=== PATIENT | female | born 1995 | race Two or more races ===

== ENCOUNTER 2017-05-16 08:49 | Inpatient (IN) | payer SELFPAY ==
[~2017-05-16] VITALS: Ht 152.4 cm; Wt 62.7 kg
--- NOTE | 2017-05-16 09:02 | PHYS DOC ---
Adult General Chief Complaint Chief Complaint: ABDOMINAL PAIN HPI HPI Patient is a 21 year old female presents to the ED complaining of abdominal pain x 2 days. States the pain is sharp. Rates it as an 8/10. Worsened since last night. Pain and tenderness to RLQ. Associated symptoms include nausea. States she had an elective a few months ago. Denies dizziness, weakness , vomiting, blood in stool, diarrhea, chest pain or shortness of breath. Review of Systems Review of Systems Constitutional: Denies fever or chills [] Eyes: Denies change in visual acuity, redness, or eye pain [] HENT: Denies nasal congestion or sore throat [] Respiratory: Denies cough or shortness of breath [] Cardiovascular: No additional information not addressed in HPI [] GI: Complains of abdominal pain. Denies nausea, vomiting, bloody stools or diarrhea [] : Denies dysuria or hematuria [] Musculoskeletal: Denies back pain or joint pain [] Integument: Denies rash or skin lesions [] Neurologic: Denies headache, focal weakness or sensory changes [] Endocrine: Denies polyuria or polydipsia [] All other systems were reviewed and found to be within normal limits, except as documented in this note. Current Medications Current Medications Current Medications Medications (Trade) Dose Ordered Sig/Nishant Start Time Stop Time Status Last Admin Dose Admin Info (Do NOT chart on this entry -- for MONITORING) 1 each PRN DAILY PRN 05/16/17 09:30 05/17/17 14:11 DC Iohexol (Omnipaque 300 Mg/ml) 75 ml 1X ONCE 05/16/17 09:30 05/16/17 09:31 DC 05/16/17 10:11 75 ML Ketorolac Tromethamine (Toradol) 15 mg 1X ONCE 05/16/17 09:15 05/16/17 09:16 DC 05/16/17 09:31 15 MG Potassium Chloride (Klor-Con) 40 meq 1X ONCE 05/16/17 10:00 05/16/17 10:01 DC 05/16/17 10:36 40 MEQ Allergies Allergies Allergies Coded Allergies Type Severity Reaction Last Updated Verified No Known Drug Allergies 05/16/17 No Physical Exam Physical Exam Constitutional: Well developed, well nourished, no acute distress, non-toxic appearance. [] HENT: Normocephalic, atraumatic, bilateral external ears normal, oropharynx moist, no oral exudates, nose normal. [] Eyes: PERRLA, EOMI, conjunctiva normal, no discharge. [] Neck: Normal range of motion, no tenderness, supple, no stridor. [] Cardiovascular:Heart rate regular rhythm, no murmur [] Lungs & Thorax: Bilateral breath sounds clear to auscultation [] Abdomen: Bowel sounds normal, soft, MILD RLQ TENDERNESS. no masses, no pulsatile masses. [] Skin: Warm, dry, no erythema, no rash. [] Back: No tenderness, no CVA tenderness. [] Extremities: No tenderness, no cyanosis, no clubbing, ROM intact, no edema. [] Neurologic: Alert and oriented X 3, normal motor function, normal sensory function, no focal deficits noted. [] Psychologic: Affect normal, judgement normal, mood normal. [] Current Patient Data Vital Signs Vital Signs Date Time Temp Pulse Resp B/P (MAP) Pulse Ox O2 Delivery O2 Flow Rate FiO2 05/16/17 11:49 81 16 99/64 (76) 97 Room Air 05/16/17 09:00 98.3 98.3 Lab Values Laboratory Tests Test 05/16/17 08:57 05/16/17 09:16 Urine Collection Type Unknown Urine Color Yellow Urine Clarity Cloudy Urine pH 6.0 Urine Specific [place] >=1.030 Urine Protein Negative mg/dL (NEG-TRACE) Urine Glucose (UA) Negative mg/dL (NEG) Urine Ketones (Stick) Negative mg/dL (NEG) Urine Blood Moderate (NEG) Urine Nitrite Negative (NEG) Urine Bilirubin Negative (NEG) Urine Urobilinogen Dipstick 0.2 mg/dL (0.2 mg/dL) Urine Leukocyte Esterase Negative (NEG) Urine RBC 6-10 /HPF (0-2) Urine WBC 0 /HPF (0-4) Urine Squamous Epithelial Cells Many /LPF Urine Bacteria Few /HPF (0-FEW) POC Urine HCG, Qualitative Hcg negative (Negative) White Blood Count 8.9 x10^3/uL (4.0-11.0) Red Blood Count 5.10 x10^6/uL (3.50-5.40) Hemoglobin 14.0 g/dL (12.0-15.5) Hematocrit 42.4 % (36.0-47.0) Mean Corpuscular Volume 83 fL (79-100) Mean Corpuscular Hemoglobin 27 pg (25-35) Mean Corpuscular Hemoglobin Concent 33 g/dL (31-37) Red Cell Distribution Width 14.4 % (11.5-14.5) Platelet Count 230 x10^3/uL (140-400) Sodium Level 142 mmol/L (136-145) Potassium Level 3.3 mmol/L (3.5-5.1) L Chloride Level 105 mmol/L (98-107) Carbon Dioxide Level 28 mmol/L (21-32) Anion Gap 9 (6-14) Blood Urea Nitrogen 11 mg/dL (7-20) Creatinine 0.6 mg/dL (0.6-1.0) Estimated GFR (Cockcroft-Gault) 127.5 BUN/Creatinine Ratio 18 (6-20) Glucose Level 93 mg/dL (70-99) Calcium Level 8.9 mg/dL (8.5-10.1) Total Bilirubin 0.4 mg/dL (0.2-1.0) Aspartate Amino Transferase (AST) 21 U/L (15-37) Alanine Aminotransferase (ALT) 35 U/L (14-59) Alkaline Phosphatase 63 U/L (46-116) Total Protein 7.4 g/dL (6.4-8.2) Albumin 3.7 g/dL (3.4-5.0) Albumin/Globulin Ratio 1.0 (1.0-1.7) Lipase 106 U/L (73-393) Laboratory Tests 05/16/17 09:16 Laboratory Tests 05/16/17 09:16 EKG EKG [] Radiology/Procedures Radiology/Procedures PROCEDURE: PELVIS COMPLETE PELVIS COMPLETE History:Pelvic pain Comparison: CT the same day Findings:Multiple transabdominal sonographic images of the pelvis are submitted. Left ovary measured 3 x 1.5 x 2.6 cm. Right ovary measured 4 x 2.2 x 3.3 cm. Endometrium measured 1.2 cm. Uterus measured 7.5 x 3.9 x 5.6 cm. There is minimal free fluid along the right aspect of uterus. There is normal low resistance vascularity of both ovaries. Impression: 1.There is mild nonspecific free fluid along the right aspect of the uterus, otherwise no abnormality demonstrated. []PROCEDURE: ABDOMEN COMPLETE ABDOMEN COMPLETE History:Abdominal pain Comparison: None Findings:Multiple sonographic images of the abdomen are submitted. Common bile duct is within normal limits up to 0.2 cm. Gallbladder is present without intraluminal abnormality, wall thickening, pericholecystic fluid. Hepatic echotexture is within normal limits, no focal hepatic lesion demonstrated. Right lobe of the liver measured 13.7 cm longitudinal. Right kidney measured 9 x 5.5 x 3.4 cm. Left kidney measured 10.6 x 5.7 x 4.5 cm. There is no hydronephrosis of either kidney. There is no abnormality of the visualized pancreas. Spleen measured 9 cm. There is segmental visualization of the inferior vena cava. Abdominal aortic caliber is within normal limits. Impression: 1.No significant abnormality is demonstrated. PROCEDURE: CT ABD PELV W/ IV CONTRST ONLY CT ABD PELV W/ IV CONTRST ONLY History:Right lower quadrant tenderness since Saturday Technique: After administration of intravenous contrast, CT imaging was performed of the abdomen and pelvis, multiplanar reconstruction images submitted. No oral contrast was given as per request. Exposure: One or more of the following individualized dose reduction techniques were utilized for this exam: 1. Automated exposure control.2. Adjustment of the mA and/or KV according to patient size.3. Use of iterative reconstruction technique. Contrast: 75 cc Omnipaque 300 Comparison: None Findings: There is no abnormality limited visualized lung bases. No focal abnormality is identified of the pancreas, liver, spleen, adrenal glands, gallbladder. Both kidneys enhance without hydronephrosis. Accurate evaluation of bowel is limited without oral contrast. Bowel is not significantly dilated. No free air is identified. There is small quantity of dependent free fluid in the pelvis. As seen on coronal image 18, there is a a focus of more defined linear density in the right uterine cornu which has more defined appearance in a vessel, approximately 16 mm in length by 1 to 2 mm in caliber. There may be some minimal fluid in the endometrial cavity. Appendix cannot be identified to exclude appendicitis by imaging. Impression: 1.Appendix cannot be identified to exclude appendicitis by imaging. There is a quantity of nonspecific free fluid in the right dependent pelvis. There is a small radiodense body in the right uterine cornu of uncertain etiology, more defined appearance than expected with a vessel. Potentially noncontrast exam follow-up could be performed to assess if there is a remaining small foreign body, alternatively correlation with clinical history and clinical evaluation is recommended. Course & Med Decision Making Course & Med Decision Making Pertinent Labs and Imaging studies reviewed. (See chart for details) []Discussed case with hospitalist, Dr. Rodriguez. Requests general surgery consult. Agrees to admission and further management of patient. Patient stable for admission. Dragon Disclaimer Dragon Disclaimer This electronic medical record was generated, in whole or in part, using a voice recognition dictation system. Departure Departure Impression: Primary Impression: Abdominal pain Disposition: ADMITTED INPATIENT Admitting Physician: Delma Rodriguez Condition: STABLE Scripts No Active Prescriptions or Reported Meds CRYSTAL KAUR May 16, 2017 09:02
[2017-05-16 09:08] LABS: BILIRUBIN,URINE NEGATIVE (NEG); GLUCOSE,URINE NEGATIVE (NEG); NITRITE,URINE NEGATIVE (NEG); PROTEIN,URINE NEGATIVE (NEG-TRACE); UROBILINOGEN,URINE 0.2 mg/dL (0.2 mg/dL)
[2017-05-16] MEDS ORDERED: KETOROLAC 15 MG/ML VIAL. IV ONE (09:15)
[2017-05-16 09:24] LABS: HEMATOCRIT 42.4 % (36.0-47.0); RED BLOOD COUNT 5.1 x10^6/uL (3.50-5.40); RED CELL DISTRIBUTION WIDTH 14.4 % (11.5-14.5); WHITE BLOOD COUNT 8.9 x10^3/uL (4.0-11.0)
[2017-05-16 09:25] LABS: BACTERIA,URINE FEW /HPF (0-FEW); SQUAMOUS EPITHELIAL CELL,UR MANY /LPF; WBC,URINE 0 /HPF (0-4)
[2017-05-16] MEDS ORDERED: CONTRAST GIVEN MC PRN (09:30)
[2017-05-16] MEDS ORDERED: IOHEXOL 300 MG/ML 100ML VIAL. IV ONE (09:30)
[2017-05-16 09:35] LABS: CALCIUM 8.9 mg/dL (8.5-10.1); CREATININE 0.6 mg/dL (0.6-1.0); GFR 127.5; POTASSIUM 3.3 mmol/L (3.5-5.1)
[2017-05-16 09:41] LABS: ALBUMIN 3.7 g/dL (3.4-5.0); TOTAL BILIRUBIN 0.4 mg/dL (0.2-1.0); TOTAL PROTEIN 7.4 g/dL (6.4-8.2)
[2017-05-16] MEDS ORDERED: POTASSIUM CHLORIDE 20 MEQ TABLET.ER. PO ONE (10:00)
--- NOTE | 2017-05-16 10:42 | RAD ---
CT ABD PELV W/ IV CONTRST ONLY History:Right lower quadrant tenderness since Saturday Technique: After administration of intravenous contrast, CT imaging was performed of the abdomen and pelvis, multiplanar reconstruction images submitted. No oral contrast was given as per request. Exposure: One or more of the following individualized dose reduction techniques were utilized for this exam: 1. Automated exposure control.2. Adjustment of the mA and/or KV according to patient size.3. Use of iterative reconstruction technique. Contrast: 75 cc Omnipaque 300 Comparison: None Findings: There is no abnormality limited visualized lung bases. No focal abnormality is identified of the pancreas, liver, spleen, adrenal glands, gallbladder. Both kidneys enhance without hydronephrosis. Accurate evaluation of bowel is limited without oral contrast. Bowel is not significantly dilated. No free air is identified. There is small quantity of dependent free fluid in the pelvis. As seen on coronal image 18, there is a a focus of more defined linear density in the right uterine cornu which has more defined appearance in a vessel, approximately 16 mm in length by 1 to 2 mm in caliber. There may be some minimal fluid in the endometrial cavity. Appendix cannot be identified to exclude appendicitis by imaging. Impression: 1.Appendix cannot be identified to exclude appendicitis by imaging. There is a quantity of nonspecific free fluid in the right dependent pelvis. There is a small radiodense body in the right uterine cornu of uncertain etiology, more defined appearance than expected with a vessel. Potentially noncontrast exam follow-up could be performed to assess if there is a remaining small foreign body, alternatively correlation with clinical history and clinical evaluation is recommended.
--- NOTE | 2017-05-16 12:53 | RAD ---
PELVIS COMPLETE History:Pelvic pain Comparison: CT the same day Findings:Multiple transabdominal sonographic images of the pelvis are submitted. Left ovary measured 3 x 1.5 x 2.6 cm. Right ovary measured 4 x 2.2 x 3.3 cm. Endometrium measured 1.2 cm. Uterus measured 7.5 x 3.9 x 5.6 cm. There is minimal free fluid along the right aspect of uterus. There is normal low resistance vascularity of both ovaries. Impression: 1.There is mild nonspecific free fluid along the right aspect of the uterus, otherwise no abnormality demonstrated.
--- NOTE | 2017-05-16 12:54 | RAD ---
ABDOMEN COMPLETE History:Abdominal pain Comparison: None Findings:Multiple sonographic images of the abdomen are submitted. Common bile duct is within normal limits up to 0.2 cm. Gallbladder is present without intraluminal abnormality, wall thickening, pericholecystic fluid. Hepatic echotexture is within normal limits, no focal hepatic lesion demonstrated. Right lobe of the liver measured 13.7 cm longitudinal. Right kidney measured 9 x 5.5 x 3.4 cm. Left kidney measured 10.6 x 5.7 x 4.5 cm. There is no hydronephrosis of either kidney. There is no abnormality of the visualized pancreas. Spleen measured 9 cm. There is segmental visualization of the inferior vena cava. Abdominal aortic caliber is within normal limits. Impression: 1.No significant abnormality is demonstrated.
[2017-05-16] MEDS ORDERED: ACETAMINOPHEN 325 MG TABLET. PO PRN (13:30)
[2017-05-16] MEDS ORDERED: MORPHINE SULFATE 2 MG/ML DISP.SYRIN. IV PRN (13:30)
[2017-05-16] MEDS ORDERED: ONDANSETRON PF 4 MG/2 ML VIAL. IV PRN ×2 (13:30→15:15)
[2017-05-16 15:00] VITALS: BP 109/72
[2017-05-16] MEDS ORDERED: POTASSIUM CL 30MEQ D5-0.45NACL 1,000 ML IV SCH (15:30)
--- NOTE | 2017-05-16 17:24 | PDOC2 ---
CONSULT Date of Consult Date of Consult DATE: 05/16/17 TIME: 17:19 Reason for Consult Reason for Consult: Abd pain Identification/Chief Complaint Chief Complaint Abd pain with diarrhea Problems: Source Source: Patient History of Present Illness Reason for Visit: 21 yo female who has had abdominal cramps for 1 week until today when the cramping became severe. She denies N/V but has been having diarrhea. Past Medical History Cardiovascular: No pertinent hx Pulmonary: No pertinent hx GI: No pertinent hx Heme/Onc: No pertinent hx Hepatobiliary: No pertinent hx Psych: No pertinent hx Rheumatologic: No pertinent hx Infectious disease: No pertinent hx ENT: No pertinent hx Renal/: No pertinent hx Endocrine: No pertinent hx Dermatology: No pertinent hx Past Surgical History Past Surgical History: No pertinent history Current Problem List Problem List Problems Medical Problems: (1) Abdominal pain Status: Acute Current Medications Current Medications Current Medications Ketorolac Tromethamine (Toradol) 15 mg 1X ONCE IV Last administered on 09:31; Start 05/16/17 at 09:15; Stop 05/16/17 at 09:16; Status DC Iohexol (Omnipaque 300 Mg/ml) 75 ml 1X ONCE IV Last administered on 10:11; Start 05/16/17 at 09:30; Stop 05/16/17 at 09:31; Status DC Info (Do NOT chart on this entry -- for MONITORING) 1 each PRN DAILY PRN MC SEE COMMENTS; Start 05/16/17 at 09:30; Stop 05/18/17 at 09:29 Potassium Chloride (Klor-Con) 40 meq 1X ONCE PO Last administered on 10:36; Start 05/16/17 at 10:00; Stop 05/16/17 at 10:01; Status DC Ondansetron HCl (Zofran) 4 mg PRN Q8HRS PRN IV NAUSEA/VOMITING; Start at 13:30; Stop 05/16/17 at 15:11; Status DC Morphine Sulfate 2 mg PRN Q2HR PRN IV PAIN Last administered on 05/16/17 16: 22; Start 05/16/17 at 13:30; Stop 05/17/17 at 13:29 Acetaminophen (Tylenol) 650 mg PRN Q4HRS PRN PO FEVER; Start 05/16/17 at 13:30 ; Stop 05/17/17 at 13:29 Ondansetron HCl (Zofran) 4 mg PRN Q6HRS PRN IV NAUSEA/VOMITING; Start at 15:15; Stop 05/17/17 at 15:14 Potassium Chloride/Dextrose/ Sod Cl 1,000 ml @ 75 mls/hr [id number] IV Last administered on 05/16/17t 15:42; Start 05/16/17 at 15:30 Active Scripts Active No Active Prescriptions or Reported Medications Allergies Allergies: Coded Allergies: No Known Drug Allergies (Unverified , 05/16/17) ROS Gastrointestinal: Yes Abdominal Pain, Yes Diarrhea Physical Exam General: Alert, Oriented X3, Cooperative, No acute distress HEENT: Atraumatic Lungs: Clear to auscultation, Normal air movement Heart: Regular rate, No murmurs Abdomen: Normal bowel sounds, Soft, Other (Mildly TTP right abdomen) Extremities: No edema Neuro: Normal gait, Normal speech Psych/Mental Status: Mental status NL Vitals VITALS Vital Signs Date Time Temp Pulse Resp B/P (MAP) Pulse Ox O2 Delivery O2 Flow Rate FiO2 05/16/17 16:22 18 Room Air 05/16/17 15:00 98.8 82 109/72 (84) 94 98.8 Labs Labs Laboratory Tests Test 05/16/17 08:57 05/16/17 09:16 Urine Collection Type Unknown Urine Color Yellow Urine Clarity Cloudy Urine pH 6.0 Urine Specific [place] >=1.030 Urine Protein Negative mg/dL (NEG-TRACE) Urine Glucose (UA) Negative mg/dL (NEG) Urine Ketones (Stick) Negative mg/dL (NEG) Urine Blood Moderate (NEG) Urine Nitrite Negative (NEG) Urine Bilirubin Negative (NEG) Urine Urobilinogen Dipstick 0.2 mg/dL (0.2 mg/dL) Urine Leukocyte Esterase Negative (NEG) Urine RBC 6-10 /HPF (0-2) Urine WBC 0 /HPF (0-4) Urine Squamous Epithelial Cells Many /LPF Urine Bacteria Few /HPF (0-FEW) Bedside Urine HCG, Qualitative Hcg negative (Negative) White Blood Count 8.9 x10^3/uL (4.0-11.0) Red Blood Count 5.10 x10^6/uL (3.50-5.40) Hemoglobin 14.0 g/dL (12.0-15.5) Hematocrit 42.4 % (36.0-47.0) Mean Corpuscular Volume 83 fL (79-100) Mean Corpuscular Hemoglobin 27 pg (25-35) Mean Corpuscular Hemoglobin Concent 33 g/dL (31-37) Red Cell Distribution Width 14.4 % (11.5-14.5) Platelet Count 230 x10^3/uL (140-400) Sodium Level 142 mmol/L (136-145) Potassium Level 3.3 mmol/L (3.5-5.1) Chloride Level 105 mmol/L (98-107) Carbon Dioxide Level 28 mmol/L (21-32) Anion Gap 9 (6-14) Blood Urea Nitrogen 11 mg/dL (7-20) Creatinine 0.6 mg/dL (0.6-1.0) Estimated GFR (Cockcroft-Gault) 127.5 BUN/Creatinine Ratio 18 (6-20) Glucose Level 93 mg/dL (70-99) Calcium Level 8.9 mg/dL (8.5-10.1) Total Bilirubin 0.4 mg/dL (0.2-1.0) Aspartate Amino Transf (AST/SGOT) 21 U/L (15-37) Alanine Aminotransferase (ALT/SGPT) 35 U/L (14-59) Alkaline Phosphatase 63 U/L (46-116) Total Protein 7.4 g/dL (6.4-8.2) Albumin 3.7 g/dL (3.4-5.0) Albumin/Globulin Ratio 1.0 (1.0-1.7) Lipase 106 U/L (73-393) Laboratory Tests Test 05/16/17 08:57 05/16/17 09:16 Urine Collection Type Unknown Urine Color Yellow Urine Clarity Cloudy Urine pH 6.0 Urine Specific [place] >=1.030 Urine Protein Negative mg/dL (NEG-TRACE) Urine Glucose (UA) Negative mg/dL (NEG) Urine Ketones (Stick) Negative mg/dL (NEG) Urine Blood Moderate (NEG) Urine Nitrite Negative (NEG) Urine Bilirubin Negative (NEG) Urine Urobilinogen Dipstick 0.2 mg/dL (0.2 mg/dL) Urine Leukocyte Esterase Negative (NEG) Urine RBC 6-10 /HPF (0-2) Urine WBC 0 /HPF (0-4) Urine Squamous Epithelial Cells Many /LPF Urine Bacteria Few /HPF (0-FEW) Bedside Urine HCG, Qualitative Hcg negative (Negative) White Blood Count 8.9 x10^3/uL (4.0-11.0) Red Blood Count 5.10 x10^6/uL (3.50-5.40) Hemoglobin 14.0 g/dL (12.0-15.5) Hematocrit 42.4 % (36.0-47.0) Mean Corpuscular Volume 83 fL (79-100) Mean Corpuscular Hemoglobin 27 pg (25-35) Mean Corpuscular Hemoglobin Concent 33 g/dL (31-37) Red Cell Distribution Width 14.4 % (11.5-14.5) Platelet Count 230 x10^3/uL (140-400) Sodium Level 142 mmol/L (136-145) Potassium Level 3.3 mmol/L (3.5-5.1) Chloride Level 105 mmol/L (98-107) Carbon Dioxide Level 28 mmol/L (21-32) Anion Gap 9 (6-14) Blood Urea Nitrogen 11 mg/dL (7-20) Creatinine 0.6 mg/dL (0.6-1.0) Estimated GFR (Cockcroft-Gault) 127.5 BUN/Creatinine Ratio 18 (6-20) Glucose Level 93 mg/dL (70-99) Calcium Level 8.9 mg/dL (8.5-10.1) Total Bilirubin 0.4 mg/dL (0.2-1.0) Aspartate Amino Transf (AST/SGOT) 21 U/L (15-37) Alanine Aminotransferase (ALT/SGPT) 35 U/L (14-59) Alkaline Phosphatase 63 U/L (46-116) Total Protein 7.4 g/dL (6.4-8.2) Albumin 3.7 g/dL (3.4-5.0) Albumin/Globulin Ratio 1.0 (1.0-1.7) Lipase 106 U/L (73-393) Images Images CT of the abd normal but could not visualize appendix U/S normal except small amount of pelvic fluid Assessment/Plan Assessment/Plan Unlikely appendicitis with Normal wbc, afebrile nothing seen on CT or U/S Likely viral enteritis Medical tx ANA GABRIEL MD May 16, 2017 17:24
[2017-05-16 17:35] VITALS: BP 105/64
--- NOTE | 2017-05-16 18:53 | PDOC1 ---
History and Physical Date of Admission Date of Admission DATE: 05/16/17 TIME: 18:49 Identification/Chief Complaint Chief Complaint abd pain with diarrhea Problems: Source Source: Caregiver, Chart review, Patient History of Present Illness History of Present Illness 21 y.o female with fluent bulgarian, no past medical, 3 day hx RLQ pain some diarrhea, no fevers, no emesis,. Went to ER, CT failed to show appendix but showed minimal pelvic fluid which was verified also on US, Trans vag US also showed trace pelvic fluid. SHe said she tried to flex her RT hip and pain increased. I did consult GS for possible acute appy, assessment was probably viral AGE, doubt appy, medical mx Past Medical History Cardiovascular: No pertinent hx Pulmonary: No pertinent hx GI: No pertinent hx Heme/Onc: No pertinent hx Hepatobiliary: No pertinent hx Psych: No pertinent hx Rheumatologic: No pertinent hx Infectious disease: No pertinent hx ENT: No pertinent hx Renal/: No pertinent hx Endocrine: No pertinent hx Dermatology: No pertinent hx Past Surgical History Past Surgical History: No pertinent history Family History Family History: No Significant, Family History Unknown Social History Smoke: No ALCOHOL: none Drugs: None Current Problem List Problem List Problems Medical Problems: (1) Abdominal pain Status: Acute Problems: Current Medications Current Medications Current Medications Ketorolac Tromethamine (Toradol) 15 mg 1X ONCE IV Last administered on 09:31; Start 05/16/17 at 09:15; Stop 05/16/17 at 09:16; Status DC Iohexol (Omnipaque 300 Mg/ml) 75 ml 1X ONCE IV Last administered on 10:11; Start 05/16/17 at 09:30; Stop 05/16/17 at 09:31; Status DC Info (Do NOT chart on this entry -- for MONITORING) 1 each PRN DAILY PRN MC SEE COMMENTS; Start 05/16/17 at 09:30; Stop 05/18/17 at 09:29 Potassium Chloride (Klor-Con) 40 meq 1X ONCE PO Last administered on 10:36; Start 05/16/17 at 10:00; Stop 05/16/17 at 10:01; Status DC Ondansetron HCl (Zofran) 4 mg PRN Q8HRS PRN IV NAUSEA/VOMITING; Start at 13:30; Stop 05/16/17 at 15:11; Status DC Morphine Sulfate 2 mg PRN Q2HR PRN IV PAIN Last administered on 05/16/17 16: 22; Start 05/16/17 at 13:30; Stop 05/17/17 at 13:29 Acetaminophen (Tylenol) 650 mg PRN Q4HRS PRN PO FEVER; Start 05/16/17 at 13:30 ; Stop 05/17/17 at 13:29 Ondansetron HCl (Zofran) 4 mg PRN Q6HRS PRN IV NAUSEA/VOMITING; Start at 15:15; Stop 05/17/17 at 15:14 Potassium Chloride/Dextrose/ Sod Cl 1,000 ml @ 75 mls/hr [id number] IV Last administered on 05/16/17 15:42; Start 05/16/17 at 15:30 Active Scripts Active No Active Prescriptions or Reported Medications Allergies Allergies: Coded Allergies: No Known Drug Allergies (Unverified , 05/16/17) ROS Review of System as per HPI all else is neg Physical Exam General: Alert, Oriented X3, Cooperative, No acute distress HEENT: Atraumatic, PERRLA, EOMI Lungs: Clear to auscultation, Normal air movement Heart: S1S2, RRR, no thrills, no rubs, no gallops, no murmurs Cardiovascular: S1, S2 Breasts: Normal, Rt breast nml w/o mass, Lt breast nml w/o mass, Nipples normal Abdomen: Normal bowel sounds, Soft, No tenderness, No hepatosplenomegaly, No masses Rectal Exam: not examined PELVIC: Nml ext genitalia Extremities: No clubbing, No cyanosis, No edema, Normal pulses, No tenderness/ swelling Skin: No rashes, No breakdown, No significant lesion Neuro: Normal gait, Normal speech, Strength at 5/5 X4 ext, Normal tone, Sensation intact, Cranial nerves 3-12 NL, Reflexes 2+ Psych/Mental Status: Mental status NL, Mood NL Vitals Vitals Vital Signs Date Time Temp Pulse Resp B/P (MAP) Pulse Ox O2 Delivery O2 Flow Rate FiO2 05/16/17 17:35 98.8 77 20 105/64 (78) 92 Room Air 98.8 Labs Labs Laboratory Tests Test 05/16/17 08:57 05/16/17 09:16 Urine Collection Type Unknown Urine Color Yellow Urine Clarity Cloudy Urine pH 6.0 Urine Specific [place] >=1.030 Urine Protein Negative mg/dL (NEG-TRACE) Urine Glucose (UA) Negative mg/dL (NEG) Urine Ketones (Stick) Negative mg/dL (NEG) Urine Blood Moderate (NEG) Urine Nitrite Negative (NEG) Urine Bilirubin Negative (NEG) Urine Urobilinogen Dipstick 0.2 mg/dL (0.2 mg/dL) Urine Leukocyte Esterase Negative (NEG) Urine RBC 6-10 /HPF (0-2) Urine WBC 0 /HPF (0-4) Urine Squamous Epithelial Cells Many /LPF Urine Bacteria Few /HPF (0-FEW) Bedside Urine HCG, Qualitative Hcg negative (Negative) White Blood Count 8.9 x10^3/uL (4.0-11.0) Red Blood Count 5.10 x10^6/uL (3.50-5.40) Hemoglobin 14.0 g/dL (12.0-15.5) Hematocrit 42.4 % (36.0-47.0) Mean Corpuscular Volume 83 fL (79-100) Mean Corpuscular Hemoglobin 27 pg (25-35) Mean Corpuscular Hemoglobin Concent 33 g/dL (31-37) Red Cell Distribution Width 14.4 % (11.5-14.5) Platelet Count 230 x10^3/uL (140-400) Sodium Level 142 mmol/L (136-145) Potassium Level 3.3 mmol/L (3.5-5.1) Chloride Level 105 mmol/L (98-107) Carbon Dioxide Level 28 mmol/L (21-32) Anion Gap 9 (6-14) Blood Urea Nitrogen 11 mg/dL (7-20) Creatinine 0.6 mg/dL (0.6-1.0) Estimated GFR (Cockcroft-Gault) 127.5 BUN/Creatinine Ratio 18 (6-20) Glucose Level 93 mg/dL (70-99) Calcium Level 8.9 mg/dL (8.5-10.1) Total Bilirubin 0.4 mg/dL (0.2-1.0) Aspartate Amino Transf (AST/SGOT) 21 U/L (15-37) Alanine Aminotransferase (ALT/SGPT) 35 U/L (14-59) Alkaline Phosphatase 63 U/L (46-116) Total Protein 7.4 g/dL (6.4-8.2) Albumin 3.7 g/dL (3.4-5.0) Albumin/Globulin Ratio 1.0 (1.0-1.7) Lipase 106 U/L (73-393) Laboratory Tests Test 05/16/17 08:57 05/16/17 09:16 Urine Collection Type Unknown Urine Color Yellow Urine Clarity Cloudy Urine pH 6.0 Urine Specific [place] >=1.030 Urine Protein Negative mg/dL (NEG-TRACE) Urine Glucose (UA) Negative mg/dL (NEG) Urine Ketones (Stick) Negative mg/dL (NEG) Urine Blood Moderate (NEG) Urine Nitrite Negative (NEG) Urine Bilirubin Negative (NEG) Urine Urobilinogen Dipstick 0.2 mg/dL (0.2 mg/dL) Urine Leukocyte Esterase Negative (NEG) Urine RBC 6-10 /HPF (0-2) Urine WBC 0 /HPF (0-4) Urine Squamous Epithelial Cells Many /LPF Urine Bacteria Few /HPF (0-FEW) Bedside Urine HCG, Qualitative Hcg negative (Negative) White Blood Count 8.9 x10^3/uL (4.0-11.0) Red Blood Count 5.10 x10^6/uL (3.50-5.40) Hemoglobin 14.0 g/dL (12.0-15.5) Hematocrit 42.4 % (36.0-47.0) Mean Corpuscular Volume 83 fL (79-100) Mean Corpuscular Hemoglobin 27 pg (25-35) Mean Corpuscular Hemoglobin Concent 33 g/dL (31-37) Red Cell Distribution Width 14.4 % (11.5-14.5) Platelet Count 230 x10^3/uL (140-400) Sodium Level 142 mmol/L (136-145) Potassium Level 3.3 mmol/L (3.5-5.1) Chloride Level 105 mmol/L (98-107) Carbon Dioxide Level 28 mmol/L (21-32) Anion Gap 9 (6-14) Blood Urea Nitrogen 11 mg/dL (7-20) Creatinine 0.6 mg/dL (0.6-1.0) Estimated GFR (Cockcroft-Gault) 127.5 BUN/Creatinine Ratio 18 (6-20) Glucose Level 93 mg/dL (70-99) Calcium Level 8.9 mg/dL (8.5-10.1) Total Bilirubin 0.4 mg/dL (0.2-1.0) Aspartate Amino Transf (AST/SGOT) 21 U/L (15-37) Alanine Aminotransferase (ALT/SGPT) 35 U/L (14-59) Alkaline Phosphatase 63 U/L (46-116) Total Protein 7.4 g/dL (6.4-8.2) Albumin 3.7 g/dL (3.4-5.0) Albumin/Globulin Ratio 1.0 (1.0-1.7) Lipase 106 U/L (73-393) VTE Prophylaxis Ordered VTE Prophylaxis Devices: Yes VTE Pharmacological Prophylaxi: Yes Assessment/Plan Assessment/Plan 1. Acute RLQ diftls include AGE<, acute appy was doubted PLAN: Reg diet, IVF to consume If cont to be better and rpt CBC tmr still no leukocytosis then home tmr GOVIND ROSALES MD May 16, 2017 18:53
[2017-05-16 19:00] VITALS: BP 104/56
[2017-05-16 23:00] VITALS: BP 121/74
[2017-05-17 03:06] VITALS: BP 93/59
[2017-05-17 06:24] LABS: BASO % 0 % (0-3); EOS % 3 % (0-3); HEMATOCRIT 40.3 % (36.0-47.0); HEMOGLOBIN 13.2 g/dL (12.0-15.5); LYMPH # 2.1 x10^3/uL (1.0-4.8); LYMPH % 32 % (24-48); MEAN CORPUSCULAR HEMOGLOBIN 28 pg (25-35); MEAN CORPUSCULAR HGB CONC 33 g/dL (31-37); MEAN CORPUSCULAR VOLUME 84 fL (79-100); MONO % 8 % (0-9); NEUT % 57 % (31-73); PLATELET COUNT 209 x10^3/uL (140-400); RED BLOOD COUNT 4.82 x10^6/uL (3.50-5.40); RED CELL DISTRIBUTION WIDTH 14.4 % (11.5-14.5); WHITE BLOOD COUNT 6.4 x10^3/uL (4.0-11.0)
[2017-05-17 06:48] LABS: ALBUMIN 3.5 g/dL (3.4-5.0); CALCIUM 8.9 mg/dL (8.5-10.1); CREATININE 0.6 mg/dL (0.6-1.0); GFR 127.5; POTASSIUM 3.9 mmol/L (3.5-5.1); TOTAL BILIRUBIN 0.6 mg/dL (0.2-1.0)
[2017-05-17 07:00] VITALS: BP 99/62
[2017-05-17 10:45] VITALS: BP 104/60
--- NOTE | 2017-05-17 15:38 | DS ---
DATE OF DISCHARGE: 05/17/2017 CHIEF COMPLAINT: Abdominal pain. HOSPITAL COURSE: The patient is a 21-year-old who presented with right lower quadrant pain accompanied by diarrhea x 1. On CT, no abnormality was found, save for free fluid in the pelvic floor. She was admitted for pain control. Pain improved significantly by next morning and the patient was discharged to home. PHYSICAL EXAMINATION: VITAL SIGNS: Blood pressure of 104/60, heart rate of 88, respiratory rate at 18, no fevers. GENERAL: This is a well-nourished 21-year-old alert and oriented, in no acute distress. LUNGS: Clear. HEART: Regular rate and rhythm. ABDOMEN: Obese, positive bowel sounds, no tenderness to palpation. EXTREMITIES: No edema. DISCHARGE DIAGNOSIS: Ruptured ovarian cyst. DISCHARGE DISPOSITION: To home. DISCHARGE CONDITION: Improved. DISCHARGE MEDICATIONS: Please refer to MAR. DISCHARGE INSTRUCTIONS: The patient will follow up with PCP in 1-2 weeks. JIMMY POWERS MD DR: MARTA/nts JOB#: [id number] / [id number] ALBERT
== END 2017-05-17 14:11 | disposition home or self-care (01) | DRG 761 ==
LOC: ER 08:49 → 5 SOUTH 13:09
PROVIDERS: ADMIT Internal Medicine; ATTEND Internal Medicine
DX: N83.209 Unspecified ovarian cyst, unspecified side (principal); R19.7 Diarrhea, unspecified
CPT/HCPCS: 36415; 74177; 76700; 76856; 80053; 81001; 81025; 83690; 85025; 85027; 96365; 96375; J1885; J2270; Q9967; 99285-25

== ENCOUNTER 2018-02-24 17:53 | Emergency (ER) | payer SELFPAY ==
[~2018-02-24] VITALS: Ht 154.9 cm; Wt 66.2 kg
--- NOTE | 2018-02-24 19:15 | PHYS DOC ---
Past Medical History Past Medical History: Ovarian Cyst Past Surgical History: No Surgical History Additional Past Surgical Histo: elective Alcohol Use: None Drug Use: None Adult General Chief Complaint Chief Complaint: ABDOMINAL PAIN HPI HPI 22 y/o female presents to ER with complaints of lower abdominal pain and concerns of . Patient reports she has had lower abdominal pain intermittently for the past week with nausea denying any vomiting or diarrhea episodes. Patient reports her LMP to be 01/09/18 and she is currently on no control and attempts to become . 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 Patient denies fever or chills. Pt denies urinary symptoms or vaginal issues. Patient denies pelvic pain or pressure. Pt denies last menses to be abnormal. Pt also c/o itchy throat and pressure in bilat. ears. She denies anyone being sick around her. Review of Systems Review of Systems Constitutional: Denies fever or chills [] Eyes: Denies change in visual acuity, redness, or eye pain [] HENT: Denies nasal congestion or sore throat [] Respiratory: Denies cough or shortness of breath [] Cardiovascular: No additional information not addressed in HPI [] GI: Denies vomiting, bloody stools or diarrhea. Reports nausea intermittent with lower abd pain : Denies dysuria or hematuria. Denies incontinence, pelvic pain/pressure, or vaginal sxs Musculoskeletal: Denies back pain or joint pain [] Integument: Denies rash or skin lesions [] Neurologic: Denies headache, focal weakness or sensory changes [] All other systems were reviewed and found to be within normal limits, except as documented in this note. Allergies Allergies Allergies Coded Allergies Type Severity Reaction Last Updated Verified No Known Drug Allergies 05/16/17 No Physical Exam Physical Exam Constitutional: Well developed, well nourished, no acute distress, non-toxic appearance. [] HENT: Normocephalic, atraumatic, bilateral ears normal, mucous membranes pink/ moist, no oral exudates, nose normal. [] Eyes: PERRLA, conjunctiva normal, no discharge. [] Neck: Normal range of motion, no tenderness, supple, no gross adenopathy Cardiovascular:Heart rate regular rhythm, no murmur [] Lungs & Thorax: Bilateral breath sounds clear to auscultation. Resp. equal/ nonlabored Abdomen: Bowel sounds normal, soft, no tenderness, no masses Skin: Warm, dry, no erythema, no rash. [] Back: No tenderness, no CVA tenderness. [] Extremities: No tenderness, no cyanosis, no clubbing, ROM intact, no edema. [] Neurologic: Alert and oriented X 3, normal motor function, normal sensory function, no focal deficits noted. [] Psychologic: Affect normal, judgement normal, mood normal. [] Current Patient Data Vital Signs Vital Signs Date Time Temp Pulse Resp B/P (MAP) Pulse Ox O2 Delivery O2 Flow Rate FiO2 02/24/18 20:45 84 111/73 (86) 98 Room Air 02/24/18 18:43 20 Lab Values Laboratory Tests Test 02/24/18 19:45 02/24/18 19:50 Urine Collection Type Unknown Urine Color Yellow Urine Clarity Clear Urine pH 6.0 Urine Specific [place] 1.015 Urine Protein Negative mg/dL (NEG-TRACE) Urine Glucose (UA) Negative mg/dL (NEG) Urine Ketones (Stick) Negative mg/dL (NEG) Urine Blood Negative (NEG) Urine Nitrite Negative (NEG) Urine Bilirubin Negative (NEG) Urine Urobilinogen Dipstick 0.2 mg/dL (0.2 mg/dL) Urine Leukocyte Esterase Large (NEG) Urine RBC 0 /HPF (0-2) Urine WBC 11-20 /HPF (0-4) Urine Squamous Epithelial Cells Many /LPF Urine Bacteria Moderate /HPF (0-FEW) Urine Mucus Mod /LPF Urine Test Negative (NEG) POC Urine HCG, Qualitative Hcg negative (Negative) EKG EKG [] Radiology/Procedures Radiology/Procedures [] Course & Med Decision Making Course & Med Decision Making Pertinent Labs reviewed. (See chart for details) 2018: Discussed test results with patient with UA showing large amount of leukocytes/WBCs 11-20 on micro neg. for nitrates/blood/ketones. Discussed plans for her prescription for antibiotic- will place on Macrobid and patient to follow-up with primary care physician in next week for re-evaluation. Discussed neg. test and if continued delay on menses she would need f/u with PCP or [employer] [employer] for further eval. Pt had NL bilat. ear exam- discussed tylenol as needed for pain. Pt remains nontoxic in appearance and in no visible distress during this discussion. Will provide community clinic/physician info with discharge paperwork. Education provided on s&s to return to ER for and discharge instructions were discussed. Noy Disclaimer Noy Disclaimer This electronic medical record was generated, in whole or in part, using a voice recognition dictation system. Departure Departure Impression: Primary Impression: UTI (urinary tract infection) Additional Impression: Abdominal pain Disposition: HOME, SELF-CARE Condition: STABLE Referrals: NO PCP (PCP) Patient Instructions: Abdominal Pain, Urinary Tract Infection Additional Instructions: Drink plenty of water. Tylenol and/or Ibuprofen as needed for pain/fever control as directed on container. Follow-up with primary doctor with any concerns or ongoing symptoms in next 3-5 days. Scripts Nitrofurantoin Monohyd/M-Cryst (MACROBID 100 MG CAPSULE) 100 Mg Capsule 1 CAP PO BID, #10 CAP 0 Refills Prov: CL TINSLEY APRN 02/24/18 Problem Qualifiers CL TINSLEY APRN Feb 24, 2018 19:15
[2018-02-24 19:57] LABS: BILIRUBIN,URINE NEGATIVE (NEG); CLARITY,URINE CLEAR; COLOR,URINE YELLOW; NITRITE,URINE NEGATIVE (NEG); PROTEIN,URINE NEGATIVE (NEG-TRACE); UROBILINOGEN,URINE 0.2 mg/dL (0.2 mg/dL)
[2018-02-24 20:03] LABS: BACTERIA,URINE MODERATE /HPF (0-FEW); SQUAMOUS EPITHELIAL CELL,UR MANY /LPF
[2018-02-24 20:04] LABS: RBC,URINE 0 /HPF (0-2)
[2018-02-24 20:05] LABS: U PREG PATIENT NEGATIVE (NEG)
[2018-02-24] MEDS ORDERED: NITR100C62 PO (20:29)
[2018-02-24 20:45] VITALS: BP 111/73
== END 2018-02-24 21:10 | disposition home or self-care (01) ==
LOC: ER 17:53
DX: N39.0 Urinary tract infection, site not specified (principal)
CPT/HCPCS: 81001; 81025; 87086; 99284

== ENCOUNTER 2021-01-05 18:51 | Emergency (ER) | payer BC ==
[~2021-01-05] VITALS: Ht 154.9 cm; Wt 62.7 kg
[~2021-01-05 18:51] MED LIST: NITR100C62 PO
[2021-01-05 19:04] LABS: BILIRUBIN,URINE NEGATIVE (NEG); CLARITY,URINE CLEAR; COLOR,URINE YELLOW; NITRITE,URINE NEGATIVE (NEG); PROTEIN,URINE NEGATIVE (NEG-TRACE); UROBILINOGEN,URINE 0.2 mg/dL (0.2 mg/dL)
[2021-01-05 19:09] LABS: U PREG PATIENT NEGATIVE (NEG)
[2021-01-05 19:11] LABS: WBC,URINE 20-40 /HPF (0-4)
[2021-01-05 19:12] LABS: BACTERIA,URINE FEW /HPF (0-FEW)
[2021-01-05 19:13] LABS: RBC,URINE OCC /HPF (0-2)
[2021-01-05 21:20] VITALS: BP 100/58
[2021-01-05] MEDS ORDERED: ONDANSETRON ODT 4 MG TAB.RAPDIS. PO ONE (22:00)
[2021-01-05] MEDS ORDERED: CEPHALEXIN 250 MG CAPSULE. PO ONE (22:00)
[2021-01-05] MEDS ORDERED: HYDROcodone/APAP 5/325MG 1 TAB TABLET PO ONE (22:00)
[2021-01-05] MEDS ORDERED: IBUPROFEN 200 MG TABLET. PO ONE (22:00)
[2021-01-05] MEDS ORDERED: CEPH500T PO (22:05)
[2021-01-05] MEDS ORDERED: IBUP-1007 PO (22:05)
[2021-01-05] MEDS ORDERED: PHEN100T82 PO (22:05)
--- NOTE | 2021-01-05 22:06 | PHYS DOC ---
Past Medical History Past Medical History: Ovarian Cyst Past Surgical History: No Surgical History Additional Past Surgical Histo: elective Smoking Status: Never Smoker Alcohol Use: Occasionally Drug Use: None General Adult EDM: Chief Complaint: ABDOMINAL PAIN HPI: HPI: Patient is a 25 year old female presenting today complaining of dysuria and left lower quadrant abdominal pain, symptoms began 2 days ago. Patient denies any fever. Denies any nausea or vomiting. Denies any chance she is . Rates the pain is mild and intermittent, denies anything specifically exacerbating or relieving the pain. Describes the pain as cramping. Review of Systems: Review of Systems: Constitutional: Denies fever or chills. [] Eyes: Denies change in visual acuity. [] HENT: Denies nasal congestion or sore throat. [] Respiratory: Denies cough or shortness of breath. [] Cardiovascular: Denies chest pain or edema. [] GI: Reports left lower quadrant abdominal pain, denies nausea, vomiting, bloody stools or diarrhea. [] : Reports dysuria Musculoskeletal: Denies back pain or joint pain. [] Integument: Denies rash. [] Neurologic: Denies headache, focal weakness or sensory changes. [] Psychiatric: Denies depression or anxiety. [] Heart Score: C/O Chest Pain: N/A Risk Factors: Risk Factors: DM, Current or recent (<one month) smoker, HTN, HLP, family history of CAD, obesity. Risk Scores: Score 0 - 3: 2.5% MACE over next 6 weeks - Discharge Home Score 4 - 6: 20.3% MACE over next 6 weeks - Admit for Clinical Observation Score 7 - 10: 72.7% MACE over next 6 weeks - Early Invasive Strategies Current Medications: Current Medications Medications (Trade) Dose Ordered Sig/Nishant Start Time Stop Time Status Last Admin Dose Admin Acetaminophen/ Hydrocodone Bitart (Lortab 5/325) 1 tab 1X ONCE 01/05/21 22:00 01/05/21 22:01 01/05/21 21:30 1 TAB Cephalexin HCl (Keflex) 500 mg 1X ONCE 01/05/21 22:00 01/05/21 22:01 01/05/21 21:31 500 MG Ibuprofen (Motrin) 600 mg 1X ONCE 01/05/21 22:00 01/05/21 22:01 01/05/21 21:30 600 MG Ondansetron HCl (Zofran Odt) 4 mg 1X ONCE 01/05/21 22:00 01/05/21 22:01 01/05/21 21:31 4 MG Allergies: Allergies: Allergies Coded Allergies Type Severity Reaction Last Updated Verified No Known Drug Allergies 01/05/21 No Physical Exam: PE: Constitutional: Well developed, well nourished, no acute distress, non-toxic appearance. [] HENT: Normocephalic, atraumatic, bilateral external ears normal, oropharynx moist, no oral exudates, nose normal. [] Eyes: PERRLA, EOMI, conjunctiva normal, no discharge. [] Neck: Normal range of motion, no tenderness, supple, no stridor. [] Cardiovascular:Heart rate regular rhythm, no murmur [] Lungs & Thorax: Bilateral breath sounds clear to auscultation [] Abdomen: Bowel sounds normal, soft, no tenderness, no masses, no pulsatile masses. [] Skin: Warm, dry, no erythema, no rash. [] Back: No tenderness, no CVA tenderness. [] Extremities: No tenderness, no cyanosis, no clubbing, ROM intact, no edema. [] Neurologic: Alert and oriented X 3, normal motor function, normal sensory function, no focal deficits noted. [] Psychologic: Affect normal, judgement normal, mood normal. [] Current Patient Data: Labs: Laboratory Tests Test 01/05/21 18:56 01/05/21 18:58 Urine Collection Type Void Urine Color Yellow Urine Clarity Clear Urine pH 5.0 (<5.0-8.0) Urine Specific [place] 1.025 (1.000-1.030) Urine Protein Negative mg/dL (NEG-TRACE) Urine Glucose (UA) Negative mg/dL (NEG) Urine Ketones (Stick) Negative mg/dL (NEG) Urine Blood Small (NEG) Urine Nitrite Negative (NEG) Urine Bilirubin Negative (NEG) Urine Urobilinogen Dipstick 0.2 mg/dL (0.2 mg/dL) Urine Leukocyte Esterase Moderate (NEG) Urine RBC Occ /HPF (0-2) Urine WBC 20-40 /HPF (0-4) Urine Squamous Epithelial Cells Mod /LPF Urine Bacteria Few /HPF (0-FEW) Urine Mucus Marked /LPF Urine Test Negative (NEG) POC Urine HCG, Qualitative Hcg negative (Negative) Vital Signs: Vital Signs Date Time Temp Pulse Resp B/P (MAP) Pulse Ox O2 Delivery O2 Flow Rate FiO2 01/05/21 21:30 99 Room Air 01/05/21 21:20 98.0 67 18 100/58 (86) 98.0 EKG: EKG: [] Radiology/Procedures: Radiology/Procedures: [] Course & Med Decision Making: Course & Med Decision Making Pertinent Labs and Imaging studies reviewed. (See chart for details) This is a 25-year-old female patient with UTI symptoms including dysuria and left lower quadrant abdominal pain. Positive for UTI. Discharged on cephalexin. Follow-up with PCP. Noy Disclaimer: Noy Disclaimer: This electronic medical record was generated, in whole or in part, using a voice recognition dictation system. Departure Departure Impression: Primary Impression: UTI (urinary tract infection) Qualified Codes: N39.0 - Urinary tract infection, site not specified Disposition: HOME / SELF CARE / HOMELESS Condition: STABLE Referrals: NO PCP (PCP) follow up in one week with your doctor Patient Instructions: Urinary Tract Infection Additional Instructions: You have urinary tract infection. Please take the prescribed antibiotics until completed. Follow-up with your doctor in 1 to 2 weeks Scripts Ibuprofen (IBUPROFEN) 600 Mg Tablet 600 MG PO PRN Q6HRS PRN for INFLAMMATION, #30 TAB Prov: TONO DIALLO APRN 01/05/21 Phenazopyridine Hcl (PYRIDIUM) 100 Mg Tablet 1 TAB PO TID for urinary discomfort for 3 Days, #9 TAB 0 Refills Prov: TONO DIALLO APRN 01/05/21 Cephalexin (CEPHALEXIN) 500 Mg Tablet 1 TAB PO BID, #14 TAB Prov: TONO DIALLO APRN 01/05/21 TONO DIALLO APRN Jan 05, 2021 22:06
== END 2021-01-05 22:11 | disposition home or self-care (01) ==
LOC: ER 18:51
DX: N39.0 Urinary tract infection, site not specified (principal)
CPT/HCPCS: 81001; 81025; 87077; 87086; 87186; 99283; 99284